=== PATIENT | male | born 1960 | race Caucasian/White ===

== ENCOUNTER 2022-03-15 15:28 | Emergency (ER) | payer OTHER ==
[2022-03-15 16:00] LABS: HEMOGLOBIN 13.7 gm/dl (14.0-17.5); RED BLOOD COUNT 4.44 M/UL (4.20-5.50); WHITE BLOOD COUNT 5.3 K/UL (4.5-11.0)
[2022-03-15 16:26] LABS: BUN/CREATININE RATIO 16 (0-10)
== END 2022-03-15 20:48 | disposition home or self-care (01) ==
LOC: ER1 15:28
PROVIDERS: Emergency Medicine
DX: R07.89 Other chest pain (principal)
CPT/HCPCS: 71045; 80053; 82550; 82553; 84484; 85025; 85652; 86140; 93005; 99285; J7030